=== PATIENT | male | born 2000 | race Caucasian/White ===

== ENCOUNTER 2025-11-02 13:24 | Emergency (ER) | payer OTHER ==
[~2025-11-02] VITALS: Ht 177.8 cm; Wt 97.0 kg
== END 2025-11-02 14:24 | disposition home or self-care (01) ==
LOC: ER 13:24
DX: S61.216A Laceration without foreign body of right little finger without damage to nail, initial encounter (principal); W26.0XXA Contact with knife, initial encounter
CPT/HCPCS: 12001; 90471; 90715; 99282-25